=== PATIENT | male | born 1985 | race African-American/Black ===

== ENCOUNTER 2021-10-27 13:07 | Emergency (ER) | payer OTHER, SELFPAY ==
[2021-10-27 13:18] VITALS: BP 129/84; PULSE 77; RESP 16; TEMP 36.5; O2SAT 98
--- NOTE | 2021-10-27 14:05 | ED.GENADULT ---
HPI - General Adult General Chief complaint: Urogenital-Male <Irina Arenas PA-C - Last Filed: 10/27/21 14:37> Stated complaint: wants std check and covid test <JONATHAN Moura Last Filed: 10/27/21 14:37> Time Seen by Provider: 10/27/21 13:37 <Irina Arenas PA-C - Last Filed: 10/27/21 14:37> Source: patient <Irina Arenas PA-C - Last Filed: 10/27/21 14:37> Mode of arrival: ambulatory <JONATHAN Moura Last Filed: 10/27/21 14:37> Limitations: no limitations <JONATHAN Moura Last Filed: 10/27/21 14:37> History of Present Illness HPI narrative: Patient is a 36-year-old male who presents the ED for STD check. Patient reports a recent sexual partner has tested positive for chlamydia and he would like to be tested and treated for this. Patient is currently asymptomatic. He did report some mild itching in his groin region 2 days ago, but denies any currently. Denies any penile discharge, genital lesions, testicular pain or swelling, dysuria, hematuria. Patient is also requesting COVID testing. He states he has had some occasional eye discharge in the mornings, but denies any fever, chills, cough, congestion, runny nose, sore throat, nausea, vomiting, myalgias, CP, SOB. <Irina Arenas PA-C - Last Filed: 10/27/21 14:37> Related Data Allergies/adverse reactions: Allergies Allergy/AdvReac Type Severity Reaction Status Date / Time Penicillins Allergy Anaphylactic Verified 10/27/21 13:20 Shock <JONATHAN Moura Last Filed: 10/27/21 14:37> Review of Systems Review of Systems: CONSTITUTIONAL: Denies fever, chills, or sweats. EYES: Reports discharge. Denies visual changes, redness. ENT: Denies rhinorrhea, congestion, sore throat. CARDIOVASCULAR: Denies chest pain. RESPIRATORY: Denies cough or dyspnea. GASTROINTESTINAL: Denies abdominal pain, nausea, vomiting, or diarrhea. GENITOURINARY: Reports itching in groin. Denies genital lesions, penile discharge, testicular pain or swelling, dysuria or hematuria. MUSCULOSKELETAL: Denies back pain, joint pain, or myalgia. NEUROLOGIC: Denies headache, numbness, or weakness. <Irina Arenas PA-C - Last Filed: 10/27/21 14:37> All systems reviewed & are unremarkable except as noted in HPI and below <Irina Arenas PA-C - Last Filed: 10/27/21 14:37> PMFSH Past Medical History Medical History: Medical History (Updated 10/27/21 @ 14:31 by Irina Arenas PA-C) No pertinent past medical history <Irina Arenas PA-C - Last Filed: 10/27/21 14:37> Surgical History Surgical History: Surgical History (Updated 10/27/21 @ 14:18 by Irina Arenas PA-C) No pertinent past surgical history <Irina Arenas PA-C - Last Filed: 10/27/21 14:37> Social History Social History: Social History (Updated 10/27/21 @ 14:18 by Irina Arenas PA-C) Smoking status: Never smoker <Irina Arenas PA-C - Last Filed: 10/27/21 14:37> Exam Narrative: GENERAL: Well appearing, well-nourished, non-toxic, in no acute distress. HEAD: Normocephalic, atraumatic. EYES: EOMI, PERRLA, conjunctiva clear bilaterally. No drainage or matting of eyelids. NECK: Supple. No adenopathy, no masses. RESPIRATORY: Airway patent, respirations nonlabored. CARDIOVASCULAR: Regular rate and rhythm without murmurs, rubs, or gallops. Radial pulses 2+ and equal bilaterally. MUSCULOSKELETAL: Moves all extremities. Strength/ROM intact without gross deformities. SKIN: Warm, dry, normal color. No rashes. NEURO: A&O X3. Speech clear. Cranial nerves II-XII grossly intact. Steady gait. No ataxic movements. PSYCHIATRIC: Appropriate mood and affect. Normal interaction. 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 [] <Navjot Gamez, DO - Last Filed: 07
[2021-10-27 14:19] LABS: Appearance Urine Clear (Clear); Bilirubin Urine Negative (Negative); Blood Urine 2+ (Negative); Color Urine Yellow (Yellow); Glucose Urine UA Negative (Negative); Ketones Urine Negative (Negative); Leukocyte Esterase Ur Negative LEU/UL (Negative); Nitrate Urine Negative (Negative); Protein Urine Negative (Negative); Specific Grav Ur >= 1.030 (1.001-1.035); Urobilinogen Urine 0.2 mg/dL (<2.0)
[2021-10-27 14:26] LABS: Mucus Urine Few /lpf; Squamous Epithelial Cell Urine Occasional /hpf (Few); WBC Urine 0-3 /hpf
[2021-10-27] MEDS: cefTRIAXone 1 GM VIAL 0.5 GM IM (14:26)
[2021-10-27 14:27] LABS: Add Urine Microscopic? YES
[2021-10-27] MEDS: LIDOCAINE HCL 1% LOCAL INJ 20 ML VIAL (14:37)
[2021-10-27 14:53] LABS: SARS-CoV-2 RNA PCR Negative
[2021-10-27 15:18] VITALS: BP 118/70; PULSE 68; RESP 16; TEMP 36.4; O2SAT 98
== END 2021-10-27 15:20 | disposition home or self-care (01) ==
PROVIDERS: Physician Assistant; Emergency Provider Emergency Medicine
DX: Z20.2 Contact with and (suspected) exposure to infections with a predominantly sexual mode of transmission (principal); Z20.822 Contact with and (suspected) exposure to COVID-19
CPT/HCPCS: 81001; 87491; 87591; 96372; 99283; C9803; J0696; U0003; U0005